=== PATIENT | male | born 1970 | race Caucasian/White ===

== ENCOUNTER 2020-08-06 09:43 | Outpatient (CLI) | payer BC | END 2020-08-06 09:44 | disposition home or self-care (01) | LOC: DTY/OP 09:43 | PROVIDERS: ATTEND Specialist | DX: Z01.818 Encounter for other preprocedural examination (principal); E66.01 Morbid (severe) obesity due to excess calories | CPT/HCPCS: 97802 ==

== ENCOUNTER 2020-10-02 10:15 | Inpatient (IN) | payer BC ==
--- NOTE | 2020-10-06 10:52 | HP ---
ADDENDUM: This is an addendum to previous dictation from 07/23/2020, dictation #[id number]. HISTORY: Cem Tam is a 49-year-old male patient seen today, 10/01/2020 after last being seen on July 23, 2020. History and physical [facility] dictation #[id number]. Patient works for the [employer], leadership functions, has viewed our bariatric seminar, seen me, and presents for bariatric surgery. He initially seen, 362 pounds, 53 BMI; today 346 pounds, 51 BMI; has seen a psychologist and felt to be an appropriate candidate for bariatric surgery. Our architectural draftsman counseled him as to perioperative dietary staged progression and planning and questions related to a laparoscopic sleeve gastrectomy. He understands risks and benefits of procedure and consents. He has had previous numerous weight loss efforts without durable success. He has comorbidities of atrial fibrillation, on Eliquis; type 2 diabetes mellitus, non-insulin dependent; elevated cholesterol; sleep apnea for which he uses CPAP at night. He has seen Dr. Reji Butts, solution engineer, has encouraged the patient undergoing bariatric surgery to lose weight, hoping to cardiovert him in the future. Patient in the last year to two has had a cardiac catheterization, stress test, and echocardiograms; negative for coronary ischemia and Dr. Mendoza has endorsed him for general anesthetic and weight loss surgery to help resolve his comorbidities. Patient understands risks and benefits and consents. His primary care physician is Dr. Be. Last hemoglobin A1c was 7.5. ALLERGIES: NONE. SOCIAL HISTORY: Tobacco, none. Alcohol, none. Patient is . REVIEW OF SYSTEMS: Noncontributory except as noted above. FAMILY HISTORY: Noncontributory. PHYSICAL EXAMINATION: VITAL SIGNS: Height 5 feet 9, 346 pounds, 51 BMI down from 53 BMI, 362 pounds. HEAD, EARS, EYES, NOSE, AND THROAT: Unremarkable. LUNGS: Clear to auscultation. CARDIAC: Irregularly irregular. ABDOMEN: Soft, obese, nontender. EXTREMITIES: Unremarkable. ASSESSMENT AND PLAN: 1. Morbid obesity, 346 pounds, 51 BMI, down from initial visit 362 pounds with 53 BMI. Plan laparoscopic sleeve gastrectomy. General anesthesia. Risks and benefits discussed. He consents. Questions answered. 2. Atrial fibrillation, on Eliquis, hold 3 days preoperatively, resume 2-1/2 days postoperatively. 3. Atrial fibrillation. 4. Diabetes mellitus. 5. Sleep apnea. 6. Hypertension. Job ID: [id number]
[2020-10-07] MEDS ORDERED: Acetaminophen 500 MG TAB ONE (08:01)
[2020-10-07] MEDS ORDERED: Heparin 5,000 UNITS/ML VIAL ONE (08:02)
[2020-10-07] MEDS ORDERED: cefOXitin Sodium/Dextrose 2 GM/50 ML BAG ONE (08:02)
[2020-10-07] MEDS ORDERED: Ketorolac Tromethamine 30 MG/ML VIAL ONE (08:02)
[2020-10-07] MEDS ORDERED: Scopolamine 1.5 mg/72 hour Patch ONE (08:02)
[2020-10-07] MEDS ORDERED: Labetalol HCl 100 MG/20 ML VIAL ONE (08:52)
[2020-10-07] MEDS ORDERED: Esmolol 100 MG/10 ML VIAL ONE (08:52)
[2020-10-07] MEDS ORDERED: Ondansetron PF 4 MG/2 ML Vial ONE (08:52)
[2020-10-07] MEDS ORDERED: Lidocaine 1% PF 5 ML VIAL ONE (08:52)
[2020-10-07] MEDS ORDERED: PHENYLEPHRINE-NS 100 MCG/ML 10 ML SYRINGE ONE (08:52)
[2020-10-07] MEDS ORDERED: PROPOFOL 200 MG/20 ML VIAL ONE (08:52)
[2020-10-07] MEDS ORDERED: Glycopyrrolate 0.2 MG/ML 5 ML SYRINGE ONE (08:52)
[2020-10-07] MEDS ORDERED: Rocuronium Bromide 10 MG/ML (10ML VIAL) ONE (08:52)
[2020-10-07] MEDS ORDERED: Bupivacaine 0.25% HCL 30 ML VIAL ONE (09:35)
[2020-10-07] MEDS ORDERED: Lidocaine 1% w/Epinephrine 1:100K 20 ML VIAL ONE (09:35)
[2020-10-07] MEDS ORDERED: Famotidine/PF 20 mg/2ml Vial ONE (09:37)
[2020-10-07] MEDS ORDERED: Fentanyl 100 MCG/2 ML VIAL ONE ×2 (09:37→13:12)
[2020-10-07] MEDS ORDERED: Midazolam HCl 2 mg/2 ml Vial ONE (10:01)
[2020-10-07] MEDS ORDERED: Promethazine HCl 25 MG/ML VIAL SLOW IVP PRN (11:05)
[2020-10-07] MEDS ORDERED: PACU-Morphine 4MG/ML VIAL SLOW IVP PRN (11:05)
[2020-10-07] MEDS ORDERED: Promethazine HCl 25 MG/ML VIAL IM PRN (11:05)
[2020-10-07] MEDS ORDERED: Meperidine HCl/PF 25 MG/ML VIAL SLOW IVP PRN (11:05)
[2020-10-07] MEDS ORDERED: HumaLOG 300 UNITS/3 ML VIAL SC PRN (12:19)
[2020-10-07] MEDS ORDERED: Dextrose 50% Abboject 50 ML SYRINGE SLOW IVP PRN (12:19)
[2020-10-07] MEDS ORDERED: Morphine 2 MG/ML VIAL SLOW IVP PRN (12:19)
[2020-10-07] MEDS ORDERED: Dextrose 5% in Water 1,000 ML IV PRN (12:19)
[2020-10-07] MEDS ORDERED: Hydrocodone-Acetamin 15 ML UDCUP PO PRN (12:19)
[2020-10-07] MEDS ORDERED: Promethazine HCl 25 MG/ML VIAL ONE (12:19)
[2020-10-07] MEDS ORDERED: hydrALAZINE 20 MG/ML VIAL SLOW IVP PRN (12:19)
[2020-10-07] MEDS ORDERED: Ondansetron PF 4 MG/2 ML Vial IVP PRN (12:19)
[2020-10-07] MEDS ORDERED: Morphine 4 MG/ML VIAL SLOW IVP PRN (12:19)
[2020-10-07] MEDS ORDERED: diphenhydrAMINE 50 MG/ML VIAL IVP PRN (12:19)
[2020-10-07] MEDS ORDERED: Acetaminophen 650 MG/20.3 ML UDCUP PO PRN (12:46)
--- NOTE | 2020-10-07 12:49 | OP ---
DATE OF PROCEDURE: 10/07/2020 PREOPERATIVE DIAGNOSES: Morbid obesity, initial visit 362 pounds and 53 BMI, preop visit 346 pounds and 51 BMI. Comorbidities; atrial fibrillation, anticoagulation with Eliquis chronically, [id number] diabetes mellitus, sleep apnea, uses CPAP, elevated cholesterol. PROCEDURES PERFORMED: Laparoscopic sleeve gastrectomy, 36-Slov[place] bougie, staple line 4 cm from the pylorus, Seamguard used, completion upper endoscopy. ANESTHESIA: General, local 0.5% Marcaine 30 mL mixed with 1% Xylocaine with epinephrine 20 mL, total volume used. DESCRIPTION OF PROCEDURE: The patient was taken to the operating room, where under general anesthesia, abdomen was clipped of hair, prepared with ChloraPrep, and draped in routine fashion. Local anesthetic mixture was infiltrated into the skin and subcutaneous tissue about the port sites. Supraumbilical midline incision made, pneumoperitoneum to 15 mmHg obtained with Veress needle, replaced with a 5 port, video laparoscope inserted. Bilateral far lateral right and left subcostal incision made and 5 ports placed. Bilateral midclavicular upper abdominal incision was made and a 15 port placed on the left, 12 port placed on the right. Subxiphoid incision made and a 5 port obturator placed, Glendy liver retractor placed, laparoscopically positioned, and reflected the left lobe of the liver anteriorly, exposing the hiatus. The patient placed in deep reverse Trendelenburg position and laparoscopic LigaSure division of the gastrocolic ligament taken down adjacent to the greater curvature of the stomach to within 4 cm of the pylorus, advancing cephalad up to the angle of His, obtaining good hemostasis, mobilizing the angle of His and upper fundus. At this point, a 36-Slovak bougie placed orally by Anesthesia, positioned along the lesser curvature of the stomach and serial fires of the Endo-TRAM stapler performed to complete the sleeve gastrectomy, initially with the 2 fires of the green load, 2 fires of the gold load, and completion with blue load fires, taking care to avoid narrowing the incisura and respecting the angle of His, dividing the fundus superiorly, keeping the spleen free of harm. The stomach was then removed through the 15 port without spillage. GraNee needle used with 0 Vicryl single suture to close the fascial defect. Wound irrigated. Good hemostasis noted. Some clips applied to the staple line, couple of focal areas, but otherwise it was hemostatic. Completion endoscopy performed, placing the endoscope without restriction, visualizing the pylorus, cannulating the duodenum, withdrawing the scope, noting no leak under distention under water. Scope withdrawn, noting normal esophagus. Sponge and needle counts were correct. Glendy liver retractor removed. Liver appeared to be healthy. There was no bleeding. Irrigant evacuated. All instruments removed. Pneumoperitoneum evacuated and all skin incisions approximated with interrupted subdermal 4-0 Monocryl and [place] glue applied. Job ID: [id number]
[2020-10-07] MEDS: Ketorolac Tromethamine 30 MG/ML VIAL IVP SCH (17:06)
[2020-10-07] MEDS: Lactated Ringer's 1,000 ML IV SCH (17:06)
[2020-10-07 17:30] VITALS: BMI 50.3
[2020-10-07] MEDS ORDERED: Enoxaparin Sodium 40 MG/0.4 ML SYRINGE SC SCH (21:00)
[2020-10-07] MEDS ORDERED: Non-Formulary Item 1 EACH (Omeprazole Magnesium [Prilosec] 10 MG Suspdr.Pkt) PO SCH (21:00)
[2020-10-08] MEDS: Lactated Ringer's 1,000 ML IV SCH (00:21)
[2020-10-08] MEDS: Ketorolac Tromethamine 30 MG/ML VIAL IVP SCH ×2 (05:24)
[2020-10-08 05:37] LABS: #Lymphocytes 1.8 thou/uL (1.20-3.40); #Neutrophils 6.6 thou/uL (1.40-6.50); %Basophils 0.3 % (0.0-1.0); %Eosinophils 0.2 % (0.0-10.0); %Lymphocytes 19.4 % (21.0-51.0); %Monocytes 10.3 % (0.0-10.0); %Neutrophils 69.8 % (42.0-75.0); Hemoglobin 12.8 g/dL (14.0-18.0); Mean Corpuscular HGB CONC 34.3 g/dL (32.0-36.0); Mean Corpuscular Hemoglobin 31.3 pg (27.0-31.0); Mean Corpuscular Volume 91.4 fL (78.0-98.0); Mean Platelet Volume 7.4 fL (7.4-10.4); Platelet Count 222 thou/uL (130-400); RBC Distribution Width 12.5 % (11.5-14.5); Red Blood Cell (RBC) Count 4.07 mill/uL (4.70-6.10); White Blood Cell (WBC) Count 9.4 thou/uL (4.8-10.8)
[2020-10-08 05:53] LABS: Anion Gap 14 mmol/L (10-20); BUN (Urea Nitrogen) 17 mg/dL (8.9-20.6); Calc. Creatinine Clearance 185 mL/min (70-130); Calcium 8.5 mg/dL (7.8-10.44); Carbon Dioxide 28 mmol/L (22-29); Chloride 102 mmol/L (98-107); Glucose 119 mg/dL (70-105); Potassium 3.7 mmol/L (3.5-5.1); Sodium 140 mmol/L (136-145)
[2020-10-08 07:28] VITALS: BP 124/83; TEMP 98.8
[2020-10-08] MEDS ORDERED: Losartan 25 MG TAB PO SCH (09:00)
[2020-10-08] MEDS ORDERED: Hydrochlorothiazide 25 MG TAB PO SCH (09:00)
[2020-10-08] MEDS ORDERED: Pantoprazole 40 MG VIAL IVP SCH (09:00)
--- NOTE | 2020-10-08 13:03 | DIS ---
DATE OF ADMISSION: 10/07/2020 DATE OF DISCHARGE: 10/08/2020 DISCHARGE DIAGNOSES: Morbid obesity, on initial visit 362 pounds and 53 BMI. Preop visit 346 pounds 51 BMI. Comorbidities; atrial fibrillation, chronic anticoagulation on Eliquis, [id number] diabetes mellitus, sleep apnea uses CPAP, and elevated cholesterol. PROCEDURE/HOSPITALIZATION: Laparoscopic sleeve gastrectomy. HISTORY: A 49-year-old male patient with the above comorbidities, underwent evaluation through our bariatric program and presents for laparoscopic sleeve gastrectomy. Postoperatively, doing well with labs stable, tolerating liquids. Discharged home with dietary progression per protocol. Lortab Elixir p.r.n. pain. Resumption of his home medications except for his diuretics. Accu-Cheks remained stable. Activity as tolerated without restriction, shower and bathe whenever. Job ID: [id number]
== END 2020-10-08 11:15 | disposition home or self-care (01) | DRG 621 ==
LOC: SURG A 10-07 07:27
PROVIDERS: ADMIT Specialist; ATTEND Specialist
PROC: 0DB64Z3 Excision of Stomach, Percutaneous Endoscopic Approach, Vertical (ICD-10-PCS; principal; 2020-10-07)
DX: E66.01 Morbid (severe) obesity due to excess calories (principal); Z20.828 Contact with and (suspected) exposure to other viral communicable diseases; I48.91 Unspecified atrial fibrillation; E11.9 Type 2 diabetes mellitus without complications; G47.33 Obstructive sleep apnea (adult) (pediatric); E78.00 Pure hypercholesterolemia, unspecified; K21.9 Gastro-esophageal reflux disease without esophagitis; Z68.43 Body mass index [BMI] 50.0-59.9, adult; Z79.84 Long term (current) use of oral hypoglycemic drugs; Z99.89 Dependence on other enabling machines and devices; Z79.899 Other long term (current) drug therapy
CPT/HCPCS: 36415; 36416; 80048; 85025; 88307; 88312; C9113; J0694; J1644; J1650; J1885; J2250; J2405; J2550; J2704; J3010; S0020; S0028